=== PATIENT | female | born 2000 | race Caucasian/White ===

== ENCOUNTER 2022-09-26 06:09 | Inpatient (IN) ==
[2022-09-26] MEDS ORDERED: OXYTOCIN 30 UNITS/500 ML BAG IV PRN ×3 (06:56→16:25)
[2022-09-26] MEDS ORDERED: LIDOCAINE 1% LOCAL 20 ML VIAL INFIL PRN (06:56)
[2022-09-26] MEDS ORDERED: PENICILLIN G POTASSIUM 6 MU in DEXTROSE 5% 250 ML IV STA (06:56)
--- NOTE | 2022-09-26 07:04 | History & Physical Report ---
Date of Service September 26, 2022 Assessment & Plan (1) Supervision of normal first : Plan: Spontaneous labor. Admit to L&D. EFM/toco. Labs. IV. Will start Pen G for GBS prophylaxis. Pitocin to get a better contraction pattern. History of Present Illness Chief Complaint: SROM, labor Primary Care Provider: Georgia Hylton, DO 22yo @ 39 3/7, presented to L&D with leaking fluid, contractions. + movement. No vaginal bleeding. Started leaking clear fluid 11:30 last night. GBS+ Allergies Allergy/AdvReac Type Severity Reaction Status Date / Time No Known Allergies Allergy Verified 09/23/22 09:07 Home Medications Medication Instructions Recorded Confirmed Type prenat.vits,wendi,ikf-[id number]-epmpu 1 tab PO DAILY 03/02/22 09/23/22 History Patient History Medical History (Updated 09/05/22 @ 09:43 by Kim Hilliard) Varicella vaccination Surgical History (Updated 03/02/22 @ 14:17 by Kim Hilliard) S/P wisdom tooth extraction Family History (Updated 03/02/22 @ 14:08 by Kim Hilliard) Grandmother (Maternal) Breast cancer Heart disease Grandfather (Maternal) Heart disease Denies family history of Ovarian cancer Colorectal cancer Social History (Updated 03/02/22 @ 14:09 by Kim Hilliard) Smoking Status: Never smoker Second Hand Exposure: No; Hx Alcohol Use: No Hx Substance Use: No Preferred Language: Sammarinese Communication Ability: Effective Executive Secretary Social Welfare Required: No Beliefs That Will Affect Care: None marital status: marital status details: Romaine Yesica (25) [phone] Current Living Situation: Spouse Current Living Situation Comment: lives with spouse, dog current occupational status: employed current occupation: [employer] Feels Safe at Home: Yes Safety Concerns: Feels Safe At This Time Assistive Devices: Contacts and Glasses Review of Systems All systems reviewed & are unremarkable except as noted in HPI & below Physical Exam Physical Exam: FHT Cat 1 [place] irreg Q 3-6 SVE 2/80/-2 Sterile spec exam: +pooling of clear fluid, +nitrizine, +ferning, +valsalva Constitutional: WD/WN, vitals as above Respiratory: normal respiratory effort, lungs clear to auscultation no respiratory distress Cardiovascular: Rate/Rhythm: regular rate and regular rhythm Gastrointestinal (Abdomen): Inspection/Auscultation: abdomen normal to inspection Percussion/Palpation: abdomen soft; abdomen nontender Gravid. No s/s chorio or abruption. Skin: no rashes, warm and dry Psychiatric: A+Ox3, euthymic affect Coding Level of Care Code None Diagnoses Supervision of normal first Z34.00
[2022-09-26] MEDS ORDERED: ONDANSETRON INJ 2 MG/ML 2 ML VIAL IV PRN ×2 (07:09→12:13)
[2022-09-26 07:35] LABS: Hematocrit (blood only) 31.4 % (37.0-47.0); Hemoglobin 10.3 g/dl (12.0-16.0); Mean Corpuscular Hemoglobin 30.7 pg (25.0-34.0); Mean Corpuscular Hgb Conc 32.8 g/dL (32.0-36.0); Mean Corpuscular Volume 93.5 fL (80.0-100.0); Mean Platelet Volume 10.1 fL (9.4-12.4); Platelet Count 193 K/uL (130-400); RDW Coefficient of Variation 13.3 % (11.5-14.5); RDW Standard Deviation 45.1 fL (36.4-46.3); Red Blood Count 3.36 M/uL (4.20-5.40); White Blood Count 10.61 K/ul (4.8-10.8)
[2022-09-26] MEDS: LACTATED RINGER'S 1,000 ML IV PRN ×2 (07:42→12:00)
[2022-09-26] MEDS ORDERED: PENICILLIN G POTASSIUM 3 MU in DEXTROSE 5% 100 ML IV PRN (09:56)
[2022-09-26] MEDS ORDERED: ePHEDrine sulfate 50 MG/ML AMP ONE (11:26)
[2022-09-26] MEDS ORDERED: BUPIVACAINE 0.25% PF 30 ML VIAL ONE (11:27)
[2022-09-26] MEDS ORDERED: fentaNYL 2MCG/ML ROPIVACAINE 1.25MG/ML 100 ML BAG EPI ONE (11:27)
[2022-09-26] MEDS ORDERED: LIDOCAINE 2%/EPINEPHRINE 1:200,000 20 ML PF ONE (11:27)
[2022-09-26] MEDS ORDERED: fentaNYL citrate PF 100 MCG/2 ML VIAL ONE (11:27)
[2022-09-26] MEDS ORDERED: SODIUM CHLORIDE 0.9% PF INJ 10 ML VIAL ONE (11:27)
[2022-09-26] MEDS ORDERED: NALOXONE HCL 0.4 MG/1 ML VIAL/CARP IV PRN (12:13)
[2022-09-26] MEDS ORDERED: PROMETHAZINE HCL 6.25 MG in SODIUM CHLORIDE 0.9% 50 ML IV PRN (12:13)
[2022-09-26] MEDS ORDERED: fentaNYL 2MCG/ML ROPIVACAINE 1.25MG/ML 100 ML BAG EPI PRN (12:13)
[2022-09-26] MEDS ORDERED: NALOXONE HCL 1 MG in SODIUM CHLORIDE 0.9% 1000ML 1,000 ML IV PRN (12:13)
[2022-09-26] MEDS ORDERED: ePHEDrine sulfate 50 MG/ML AMP IV PRN (12:13)
[2022-09-26] MEDS ORDERED: diphenhydrAMINE 50 MG/ML VIAL IV PRN (12:13)
[2022-09-26] MEDS ORDERED: NALBUPHINE HCL INJ 10 MG/ML AMP IV PRN (12:13)
--- NOTE | 2022-09-26 12:15 | Anesthesiology Consultation ---
Date of Service September 26, 2022 Assessment & Plan Chart Review Chart Review: Acceptable Risk for Surgery and Patient NOT seen in Pre Admission Testing Consults Requested none ASA ASA2 Proposed Anesthesia Anesthesia Type: Labor Epidural Risk / Benefits Reviewed With: PT / POA / Parent / Guardian, Accepts Plan and Informed Consent Obtained History Height/Weight Height: 5 ft 5 in Weight: 72.212 kg Allergies Allergy/AdvReac Type Severity Reaction Status Date / Time No Known Allergies Allergy Verified 09/23/22 09:07 Medications Home Medications Medication Instructions Recorded Confirmed Last Taken prenat.vits,wendi,byk-tcjq-mungi 1 tab PO DAILY 03/02/22 09/23/22 Unknown Active Medications Generic Name Dose Route Start Last Admin Trade Name Freq PRN Reason Stop Dose Admin Lactated Ringer's 1,000 mls @ 125 mls/hr 09/26/22 06:56 09/26/22 12:12 Lr IV 09/28/22 06:55 125 mls/hr .Q8H PRN Infusion L&D Protocol Protocol Oxytocin 30 units in 500 mls @ 7 mls/hr 09/26/22 06:56 09/26/22 11:00 Pitocin IV 09/28/22 06:55 0.42 units/hr .Q24H PRN 7 mls/hr Labor Induction/Augmentation Titration Protocol 0.42 UNITS/HR Past Medical History Medical History Varicella vaccination Exercise / Class Metabolic Activity II 4-5 Yardwork/Stairs/Walk up hill Past Family History Family History Grandmother (Maternal) Breast cancer Heart disease Grandfather (Maternal) Heart disease Denies family history of Ovarian cancer Colorectal cancer Past Surgical History Surgical History S/P wisdom tooth extraction Past Anesthesia History No Hx of Anesthesia Complications and No Family Hx of Anesthesia Complications History of PONV No Hx of PONV and No Hx of Motion Sickness Social History Smoking Status: Never smoker Hx Alcohol Use: No Hx Substance Use: No Physical Exam Vital Signs Last Vital Signs Pulse 78 09/26/22 12:13 BP 124/63 09/26/22 12:13 Pulse Ox 100 09/26/22 12:10 ENMT Mouth: no dentition abnormality Thyromental Distance: > or= 3.5 Finger Breadths Mallampati Class: II Neck normal visual inspection Respiratory normal respiratory effort Auscultation: lungs clear to auscultation bilaterally Cardiovascular Rate/Rhythm: regular rate and regular rhythm Psychiatric Orientation: alert Testing Laboratory Results 09/26/22 07:12
[2022-09-26] MEDS ORDERED: NURSING L&D Epidural Breakthrough Pain Update ONE (14:44)
[2022-09-26] MEDS ORDERED: BENZOCAINE 20% AER SPR 82.5 GM CAN EXT PRN (16:25)
[2022-09-26] MEDS ORDERED: HYDROCORTISONE ACETATE 25 MG SUPP PR PRN (16:25)
[2022-09-26] MEDS ORDERED: bisacodyL 10 MG SUPP PR PRN (16:25)
[2022-09-26] MEDS ORDERED: DIPHTHERIA/TETANUS/PERTUSSIS 0.5mL SYR/VIAL (Age 7+yrs) IM ONE (16:25)
[2022-09-26] MEDS ORDERED: ACETAMINOPHEN 325 MG TAB PO PRN (16:25)
--- NOTE | 2022-09-26 17:16 | Anesthesia Procedure Note ---
Date of Service September 26, 2022 Anesthesia Post Epidural Note Vital Signs Vital Signs: Pulse BP Pulse Ox 80 116/63 94 09/26/22 17:10 09/26/22 17:10 09/26/22 16:13 Pain Intensity Bilateral Abdomen: Pain Intensity: 0 Notes Mental Status: alert / awake / arousable Nausea / Vomiting: adequately controlled Pain: adequately controlled Airway Patency, RR, SpO2: stable & adequate BP & HR: stable & adequate Hydration State: stable & adequate Neuraxial Anesthesia: was administered and sensory block is resolving Anesthetic Complications: no major complications apparent and Pt Satisfied with anesthetic care Epidural: Removed without complications and With tip intact
[2022-09-26] MEDS: IBUPROFEN 600 MG TAB PO PRN ×2 (18:39→23:18)
[2022-09-26] MEDS: DOCUSATE SODIUM 100 MG CAP PO SCH (20:47)
--- NOTE | 2022-09-27 00:56 | Delivery Summary ---
DATE OF SERVICE: 09/26/2022 PROCEDURE PERFORMED: Normal spontaneous vaginal delivery with first-degree vaginal laceration and bi lateral labial laceration repair. SURGEON: Hamilton Juarez MD. PREOPERATIVE DIAGNOSES: 1. Single intrauterine at 39 weeks 3 days gestational age. 2. Spontaneous rupture of membranes. 3. Group B streptococcus positive. POSTOPERATIVE DIAGNOSES: 1. Single intrauterine at 39 weeks 3 days gestational age. 2. Spontaneous rupture of membranes. 3. Group B streptococcus positive. 4. Status post procedure. ESTIMATED BLOOD LOSS: 300 mL DRAINS: None. FLUIDS: Continuous lactated Ringer. URINE OUTPUT: None. COMPLICATIONS: None. FINDINGS: Viable with weight and Apgars pending. DESCRIPTION OF PROCEDURE: The patient progressed to 10 cm dilated, 100% effaced, positive 2 to 3 sta tion, pushed over intact perineum with epidural anesthesia and delivered a viable with weight and Apgars pending. Head of the delivered in POWER position, restituted to right transverse. A single nuchal was noted, which was easily reduced. Body and shoulders quickly followed. was noted to be vigorous soon after delivery and 1 minute delayed cord clamping was initiated. Cord was then double clamped and cut. remained on maternal abdomen. Cord blood was obtained. At tention was then turned to delivery of placenta, which was delivered intact, 3-vessel cord with gentl e cord traction. On inspection of perineum and vagina, cervix, there was noted to be a vaginal lacer ation and bilateral labial lacerations were repaired with 3-0 Vicryl in a continuous running stitch. Needle, sponge, and instrument counts were correct at the completion of the case. Both mother and n eonate stable in the immediate post-delivery period. Job ID: [id number]
--- NOTE | 2022-09-27 03:33 | Delivery Summary ---
duplicate note placed in error. please see delivery summary MTDD
[2022-09-27] MEDS: IBUPROFEN 600 MG TAB PO PRN ×2 (04:16→09:00)
[2022-09-27] MEDS ORDERED: PRENATAL VITAMIN 1 TAB ONE (07:00)
[2022-09-27 07:22] LABS: Hematocrit (blood only) 29.9 % (37.0-47.0); Hemoglobin 9.7 g/dl (12.0-16.0); Mean Corpuscular Hemoglobin 30.6 pg (25.0-34.0); Mean Corpuscular Hgb Conc 32.4 g/dL (32.0-36.0); Mean Corpuscular Volume 94.3 fL (80.0-100.0); Mean Platelet Volume 10.1 fL (9.4-12.4); Platelet Count 183 K/uL (130-400); RDW Coefficient of Variation 13.7 % (11.5-14.5); RDW Standard Deviation 46.6 fL (36.4-46.3); Red Blood Count 3.17 M/uL (4.20-5.40); White Blood Count 11.15 K/ul (4.8-10.8)
--- NOTE | 2022-09-27 07:39 | Obstetrical Progress Note ---
Date of Service September 27, 2022 Assessment & Plan (1) Group beta Strep positive: (2) Supervision of normal first : Plan Anh is a 22 y/o female who is PPD #1 following delivery at 39 4/7 weeks. -Meeting all milestones -Vital signs reviewed and WNL, Hemoglobin stable -O+/GBS positive/Rubella immune, Received Penicillin in labor due to GBS status -Follow up in 6 weeks for appointment -Continue routine care Admission and Anticipated Discharge Date Admission Date: September 26, 2022 Supervising Physician Co-Signing Physician Notes Patient seen and evaluated with resident and agree plan. Routine care. Subjective Anh is a 22 y/o female who is PPD #1 following delivery at 39 4/7 weeks. She reports feeling well overall this morning. Notes that pain is well managed on analgesics. Voiding without issue. Tolerating meals overnight and able to ambulate some. Has some persistent lochia with some improvement this morning. Currently breast feeding. Review of Systems Constitutional: no fever, no chills and no sweats Respiratory: no cough, no dyspnea and no wheezing Cardiovascular: no chest pain, no palpitations and no calf pain Genitourinary: no dysuria Neurologic: no headache(s) Physical Exam Constitutional: WD/WN, vitals as above no acute distress Respiratory: no respiratory distress Auscultation: lungs clear to auscultation bilaterally Cardiovascular: Extremities: no calf tenderness and no edema Negative Cora's sign bilaterally. Gastrointestinal (Abdomen): Inspection/Auscultation: normal bowel sounds Psychiatric: A+Ox3, euthymic affect Genitourinary: Uterine fundus firm, palpable below the umbilicus. Results & Data Vital Signs (Past 12 Hours) Vital Signs Temp Pulse Resp BP Pulse Ox O2 Del Method 09/27/22 04:05 36.7 C 71 18 115/63 09/26/22 23:10 36.6 C 65 18 101/63 09/26/22 20:40 36.6 C 69 18 101/66 98 Room Air Resident Activity Tracking Resident Involvement: Resident Care Provided Care Provided: OB Delivery
[2022-09-27] MEDS: PRENATAL VITAMIN 1 TAB PO SCH (09:00)
[2022-09-27] MEDS: DOCUSATE SODIUM 100 MG CAP PO SCH ×2 (09:00→20:50)
[2022-09-27] MEDS ORDERED: bisacodyL 5 MG TABEC PO SCH (20:00)
[2022-09-28] MEDS: IBUPROFEN 600 MG TAB PO PRN (00:03)
--- NOTE | 2022-09-28 06:36 | Obstetrical Progress Note ---
Date of Service September 28, 2022 Assessment & Plan (1) Group beta Strep positive: (2) Supervision of normal first : Plan Anh is a 22 y/o female who is PPD #2 following delivery at 39 4/7 weeks. -Meeting all milestones -Vital signs reviewed and WNL, Hemoglobin stable -O+/GBS positive/Rubella immune, Received Penicillin in labor due to GBS status -Follow up in 6 weeks for appointment -Continue routine care -Plan to d/c later today, provided discharge instructions Admission and Anticipated Discharge Date Admission Date: September 26, 2022 Supervising Physician Co-Signing Physician Notes Resident Physician Supervision Note: I was present with Dr. Hylton during the history and exam. I discussed the case with the resident and agree with the findings and plan as documented in the note. Any exceptions or clarifications are listed here: stable, ready for dc h ome. abd soft ff 2 down nt. nt calves. ppd#2 s/p . rh pos, ri, . instructions reviewed. f/u 6 wk pp. Documented By: Ivette Fermin MD, FACOG Subjective Anh is a 22 y/o female who is PPD #2 following delivery at 39 4/7 weeks. She reports feeling well overall this morning. Notes that pain is well managed on analgesics. Voiding without issue. Tolerating meals overnight and able to ambulate some. Has some persistent lochia with some improvement this morning. Currently breast feeding. Ready to discharge today. Review of Systems Constitutional: no fever, no chills and no sweats Respiratory: no cough, no dyspnea and no wheezing Cardiovascular: no chest pain, no palpitations and no calf pain Genitourinary: no dysuria Neurologic: no headache(s) Physical Exam Constitutional: WD/WN, vitals as above no acute distress Respiratory: no respiratory distress Auscultation: lungs clear to auscultation bilaterally; no rales, no rhonchi and no wheezes Cardiovascular: RRR, no murmur, no edema Extremities: no calf tenderness and no edema Gastrointestinal (Abdomen): Inspection/Auscultation: normal bowel sounds Psychiatric: A+Ox3, euthymic affect Genitourinary: Uterine fundus firm under umbilicus Results & Data Vital Signs (Past 12 Hours) Vital Signs Temp Pulse Resp BP Pulse Ox O2 Del Method 09/28/22 00:00 36.6 C 67 18 102/63 96 Room Air 09/27/22 20:15 36.7 C 67 16 107/68 98 Room Air Resident Activity Tracking Resident Involvement: Resident Care Provided Care Provided: OB Delivery
[2022-09-28 07:09] LABS: Hematocrit (blood only) 28.6 % (37.0-47.0); Hemoglobin 9.3 g/dl (12.0-16.0)
[2022-09-28] MEDS: DOCUSATE SODIUM 100 MG CAP PO SCH (08:43)
[2022-09-28] MEDS: PRENATAL VITAMIN 1 TAB PO SCH (08:43)
== END 2022-09-28 13:01 | disposition home or self-care (01) | DRG 807 ==
LOC: OPB 06:09 → 4S1 06:11 → 4E2 20:16